=== PATIENT | male | born 1985 | race Caucasian/White ===

== ENCOUNTER 2019-03-07 14:15 | Emergency (ER) | payer BC, OTHER ==
[2019-03-07 14:32] VITALS: RESP 16; TEMP 98.3
[2019-03-07] MEDS ORDERED: SODIUM CHLORIDE 0.9% 1,000 ML IV STA (15:03)
--- NOTE | 2019-03-07 15:09 | ED ---
General Adult HPI - General Chief complaint: Extremity Injury, Upper Stated complaint: left arm pain Time Seen by Provider: 03/07/19 14:42 Source: patient Mode of arrival: ambulatory Limitations: no limitations - History of Present Illness Initial comments: Patient is a 33-year-old male presenting to emergency Department with complaints of pain in his left arm as well as chest pressure and anxiety x 2 days. Patient has history of anxiety and is currently on BuSpar for this. Patient states his left arm pain started 2 days ago. He denies any trauma or falls arm. Patient has no previous history of injuries to the left arm. Patient describes the pain as consistent, traveling down the entire arm with some mild numbness to arm. Patient's is here with him and is having to speak for him as she states he has a hard time talking when he is having a panic attack. Patient admits to sometimes not taking both doses of his BuSpar as he feels it does not work very well. Patient denies shortness of breath, cough, abdominal pain, vomiting. Pat ient does admit to some associated nausea with his anxiety. Patient denies history of heart disease. No other complaints at this time. - Related Data Home Medications Medication Instructions Recorded Confirmed Albuterol Inhaler [Ventolin Hfa 1 - 2 puff INHALATION RT-Q6H PRN 02/04/16 04/08/16 Inhaler] busPIRone HCL [Buspar] 7.5 mg PO BID 02/04/16 04/08/16 Previous Rx's Medication Instructions Recorded Hydrocodone/Acetaminophen [[place] 1 each PO Q6HR PRN #20 tab 04/09/16 5-325] Allergies Allergy/AdvReac Type Severity Reaction Status Date / Time Penicillins Allergy Rash/Hives Verified 03/07/19 14:32 Review of Systems ROS Statement: Those systems with pertinent positive or pertinent negative responses have been documented in the HPI. ROS Other: All systems not noted in ROS Statement are negative. Past Medical History Past Medical History: Asthma, GERD/Reflux, Thyroid Disorder Additional Past Medical History / Comment(s): hx migraines, heartburn, elevated bilirubin History of Any Multi-Drug Resistant Organisms: None Reported Past Surgical History: Appendectomy, Cholecystectomy Past Anesthesia/Blood Transfusion Reactions: No Reported Reaction Past Psychological History: Anxiety Smoking Status: Former smoker Past Alcohol Use History: Occasional Past Drug Use History: None Reported - Past Family History Mother Family Medical History: No Reported History General Exam - General Exam Comments Initial Comments: GENERAL: Well-appearing, well-nourished and in no acute distress. Patient appears anxious. HEAD: Atraumatic, normocephalic. EYES: Pupils equal round and reactive to light, extraocular movements intact, sclera anicteric, conjunctiva are normal. ENT: TMs normal, nares patent, oropharynx clear without exudates. Moist mucous membranes. NECK: Normal range of motion, supple without lymphadenopathy or JVD. LUNGS: Breath sounds clear to auscultation bilaterally and equal. No wheezes rales or rhonchi. HEART: Regular rate and rhythm without murmurs, rubs or gallops. ABDOMEN: Soft, nontender, normoactive bowel sounds. No guarding, no rebound. No masses appreciated. : Deferred EXTREMITIES: Normal range of motion, no pitting or edema. No clubbing or cyanosis. Patient has normal range of motion of the left shoulder. No point tenderness. Strength is 5 out of 5. NEUROLOGICAL: Cranial nerves II through XII grossly intact. Normal speech, normal gait. PSYCH: Normal mood, normal affect. SKIN: Warm, Dry, normal turgor, no rashes or lesions noted. Limitations: no limitations Course Vital Signs 03/07/19 03/07/19 14:29 16:59 Temperature 98.3 F Pulse Rate 81 80 Respiratory 16 16 Rate Blood Pressure 158/94 123/82 O2 Sat by Pulse 99 98 Oximetry EKG Findings - EKG Comments: EKG Findings:: Ventricular rate 75, KS interval 162, QTC 422. Normal sinus rhythm. No ST segment changes. Medical Decision Making - Medical Decision Making Patient is a 33-year-old male presenting with left arm pain and chest pressure times to 3 days. Patient has history of anxiety. Upon arrival, vital signs are stable, afebrile. CBC, CMP, UA are within normal limits. Troponin is normal. Urine drug screen is normal. EKG is within normal limits. Patient was given some fluids. Upon discussing results with patient, he seems to be more relaxed and states he is feeling improvement. It was discussed that he needs to follow up with his PCP regarding his increased and anxiety and making sure he takes m edications. Patient is stable for discharge and he is in agreement this plan. Return parameters were discussed with the patient and he verbalized understanding. Case discussed with Dr. Saeed. - Lab Data Result diagrams: 03/07/19 15:16 03/07/19 15:16 Lab Results 03/07/19 03/07/19 03/07/19 Range/Units 15:16 15:16 15:16 WBC 5.0 (3.8-10.6) k/uL RBC 5.52 (4.30-5.90) m/uL Hgb 17.6 H (13.0-17.5) gm/dL Hct 48.5 (39.0-53.0) % MCV 87.8 (80.0-100.0) fL MCH 31.9 (25.0-35.0) pg MCHC 36.3 (31.0-37.0) g/dL RDW 12.2 (11.5-15.5) % Plt Count 218 (150-450) k/uL Neutrophils % 61 % Lymphocytes % 28 % Monocytes % 6 % Eosinophils % 3 % Basophils % 0 % Neutrophils # 3.0 (1.3-7.7) k/uL Lymphocytes # 1.4 (1.0-4.8) k/uL Monocytes # 0.3 (0-1.0) k/uL Eosinophils # 0.2 (0-0.7) k/uL Basophils # 0.0 (0-0.2) k/uL Sodium 143 (137-145) mmol/L Potassium 4.5 (3.5-5.1) mmol/L Chloride 109 H (98-107) mmol/L Carbon Dioxide 24 (22-30) mmol/L Anion Gap 10 mmol/L BUN 13 (9-20) mg/dL Creatinine 0.86 (0.66-1.25) mg/dL Est GFR (CKD-EPI)AfAm >90 (>60 ml/min/1.73 sqM) Est GFR (CKD-EPI)NonAf >90 (>60 ml/min/1.73 sqM) Glucose 87 (74-99) mg/dL Calcium 9.6 (8.4-10.2) mg/dL Total Bilirubin 2.3 H (0.2-1.3) mg/dL AST 53 (17-59) U/L ALT 65 (21-72) U/L Alkaline Phosphatase 70 (38-126) U/L Troponin I <0.012 (0.000-0.034) ng/mL Total Protein 8.7 H (6.3-8.2) g/dL Albumin 4.9 (3.5-5.0) g/dL Urine Color Urine Appearance (Clear) Urine pH (5.0-8.0) Ur Specific [place] (1.001-1.035) Urine Protein (Negative) Urine Glucose (UA) (Negative) Urine Ketones (Negative) Urine Blood (Negative) Urine Nitrite (Negative) Urine Bilirubin (Negative) Urine Urobilinogen (<2.0) mg/dL Ur Leukocyte Esterase (Negative) Urine Opiates Screen (NotDetected) Ur Oxycodone Screen (NotDetected) Urine Methadone Screen (NotDetected) Ur Propoxyphene Screen (NotDetected) Ur Barbiturates Screen (NotDetected) U Tricyclic Antidepress (NotDetected) Ur Phencyclidine Scrn (NotDetected) Ur Amphetamines Screen (NotDetected) U Methamphetamines Scrn (NotDetected) U Benzodiazepines Scrn (NotDetected) Urine Cocaine Screen (NotDetected) U Marijuana (THC) Screen (NotDetected) 03/07/19 Range/Units 16:00 WBC (3.8-10.6) k/uL RBC (4.30-5.90) m/uL Hgb (13.0-17.5) gm/dL Hct (39.0-53.0) % MCV (80.0-100.0) fL MCH (25.0-35.0) pg MCHC (31.0-37.0) g/dL RDW (11.5-15.5) % Plt Count (150-450) k/uL Neutrophils % % Lymphocytes % % Monocytes % % Eosinophils % % Basophils % % Neutrophils # (1.3-7.7) k/uL Lymphocytes # (1.0-4.8) k/uL Monocytes # (0-1.0) k/uL Eosinophils # (0-0.7) k/uL Basophils # (0-0.2) k/uL Sodium (137-145) mmol/L Potassium (3.5-5.1) mmol/L Chloride (98-107) mmol/L Carbon Dioxide (22-30) mmol/L Anion Gap mmol/L BUN (9-20) mg/dL Creatinine (0.66-1.25) mg/dL Est GFR (CKD-EPI)AfAm (>60 ml/min/1.73 sqM) Est GFR (CKD-EPI)NonAf (>60 ml/min/1.73 sqM) Glucose (74-99) mg/dL Calcium (8.4-10.2) mg/dL Total Bilirubin (0.2-1.3) mg/dL AST (17-59) U/L ALT (21-72) U/L Alkaline Phosphatase (38-126) U/L Troponin I (0.000-0.034) ng/mL Total Protein (6.3-8.2) g/dL Albumin (3.5-5.0) g/dL Urine Color Yellow Urine Appearance Clear (Clear) Urine pH 6.0 (5.0-8.0) Ur Specific [place] 1.030 (1.001-1.035) Urine Protein Trace H (Negative) Urine Glucose (UA) Negative (Negative) Urine Ketones Trace H (Negative) Urine Blood Negative (Negative) Urine Nitrite Negative (Negative) Urine Bilirubin Negative (Negative) Urine Urobilinogen 3.0 (<2.0) mg/dL Ur Leukocyte Esterase Negative (Negative) Urine Opiates Screen Not Detected (NotDetected) Ur Oxycodone Screen Not Detected (NotDetected) Urine Methadone Screen Not Detected (NotDetected) Ur Propoxyphene Screen Not Detected (NotDetected) Ur Barbiturates Screen Not Detected (NotDetected) U Tricyclic Antidepress Not Detected (NotDetected) Ur Phencyclidine Scrn Not Detected (NotDetected) Ur Amphetamines Screen Not Detected (NotDetected) U Methamphetamines Scrn Not Detected (NotDetected) U Benzodiazepines Scrn Not Detected (NotDetected) Urine Cocaine Screen Not Detected (NotDetected) U Marijuana (THC) Screen Not Detected (NotDetected) Disposition Clinical Impression: Anxiety, Left arm pain Disposition: HOME SELF-CARE Condition: Stable Instructions (If sedation given, give patient instructions): Anxiety (ED) Additional Instructions: Please return to the Emergency Department if symptoms worsen or any other julissa rns. I'll elope with PCP as discussed, next week. Is patient prescribed a controlled substance at d/c from ED?: No Referrals: Kianna Burger MD [Primary Care Provider] - 1-2 days
[2019-03-07 15:47] LABS: Basophils % (A) 0 %; Eosinophils # (A) 0.2 k/uL (0-0.7); Eosinophils % (A) 3 %; HCT 48.5 % (39.0-53.0); HGB 17.6 gm/dL (13.0-17.5); Lymphocytes # (A) 1.4 k/uL (1.0-4.8); Lymphocytes % (A) 28 %; MCH 31.9 pg (25.0-35.0); MCHC 36.3 g/dL (31.0-37.0); MCV 87.8 fL (80.0-100.0); Mean Platelet Volume 7.4; Monocytes # (A) 0.3 k/uL (0-1.0); Monocytes % (A) 6 %; Neutrophils % (A) 61 %; Platelet Count 218 k/uL (150-450); RBC 5.52 m/uL (4.30-5.90); RDW 12.2 % (11.5-15.5)
[2019-03-07 15:59] LABS: ALT 65 U/L (21-72); AST 53 U/L (17-59); African American GFR (CKD) >90 (>60 ml/min/1.73 sqM); Albumin 4.9 g/dL (3.5-5.0); Alkaline Phosphatase 70 U/L (38-126); Anion Gap 10 mmol/L; Blood Urea Nitrogen 13 mg/dL (9-20); Calcium 9.6 mg/dL (8.4-10.2); Carbon Dioxide 24 mmol/L (22-30); Chloride 109 mmol/L (98-107); Glucose 87 mg/dL (74-99); Potassium 4.5 mmol/L (3.5-5.1); Sodium 143 mmol/L (137-145); Total Bilirubin 2.3 mg/dL (0.2-1.3); Total Protein 8.7 g/dL (6.3-8.2)
[2019-03-07 16:08] LABS: Appearance,Urine Clear (Clear); Bilirubin,Urine Negative (Negative); Blood,Urine Negative (Negative); Color,Urine Yellow; Glucose,Urine (UA) Negative (Negative); Ketones,Urine Trace (Negative); Leukocyte Esterase,Urine Negative (Negative); Nitrite,Urine Negative (Negative); Protein,Urine Trace (Negative)
[2019-03-07 16:17] LABS: Amphetamine Screen,Urine Not Detected (NotDetected); Barbiturate Screen,Urine Not Detected (NotDetected); Benzodiazepines Screen,Urine Not Detected (NotDetected); Cocaine Screen,Urine Not Detected (NotDetected); Methadone Screen, Urine Not Detected (NotDetected); Opiate Screen,Urine Not Detected (NotDetected); Oxycodone Screen, Urine Not Detected (NotDetected); Phencyclidine Screen,Urine Not Detected (NotDetected); Tricyclic Antidepressant,Urine Not Detected (NotDetected); Urn Cannabinoid Scrn Not Detected (NotDetected)
[2019-03-07 17:00] VITALS: BP 123/82; PULSE 80
== END 2019-03-07 17:03 | disposition home or self-care (01) ==
LOC: EC 14:15
DX: F41.9 Anxiety disorder, unspecified (principal); M79.602 Pain in left arm; J45.909 Unspecified asthma, uncomplicated; Z79.899 Other long term (current) drug therapy; Z88.0 Allergy status to penicillin; Z87.891 Personal history of nicotine dependence
CPT/HCPCS: 36415; 80053; 80306; 81003; 84484; 85025; 93005; 96360; 99283

== ENCOUNTER → 2020-01-29 | Outpatient (CLI) | payer BC ==
--- NOTE | 2020-01-30 07:27 | US ---
EXAMINATION TYPE: US thyroid st tissue head/neck DATE OF EXAM: 01/29/2020 COMPARISON: NONE CLINICAL HISTORY: 34-year-old male E03.9 Hypothyroidism. Abnormal labs TECHNIQUE: Multiple sonographic images of the thyroid gland are obtained. FINDINGS: GLAND SIZE: Right Lobe: 4.4 x 2.0 x 2.2 cm Overall Parenchyma: Mildly heterogenous Left Lobe: 5.6 x 1.3 x 1.5 cm Overall Parenchyma: Mildly heterogeneous Isthmus Thickness: 0.3 cm Mild diffuse hyperemia is noted. NODULES RIGHT: # of nodules measured on right: 0 LEFT: # of nodules measured on left: 0 ISTHMUS: # of nodules measured in the isthmus: 0 Bilateral neck scanned, no evidence of lymphadenopathy. IMPRESSION: Borderline to mild thyromegaly. There is slight glandular heterogeneity and mild hyperemia. Consider possible diffuse thyroiditis.
--- NOTE | 2020-01-30 07:30 | US ---
EXAMINATION TYPE: US abdomen complete DATE OF EXAM: 01/29/2020 COMPARISON: NONE CLINICAL HISTORY: 34-year-old male Abn liver enzymes R74.8. Abnormal labs, discomfort in RUQ for 1 mo nth. Patient is status post cholecystectomy. TECHNIQUE: Multiple sonographic images of the abdomen are obtained. FINDINGS: EXAM MEASUREMENTS: Liver Length: 13.3 cm Gallbladder: Surgically absent CBD: 0.6 cm Spleen: 11.4 cm Right Kidney: 10.1 x 4.6 x 5.0 cm Left Kidney: 11.1 x 4.9 x 5.9 cm Pancreas: Suboptimal visualization of the pancreatic tail due to shadowing from bowel gas. Liver: Mildly echogenic. No focal lesion. Gallbladder: Surgically absent Evidence for sonographic Hoyt's sign: no CBD: wnl Spleen: wnl Right Kidney: wnl Left Kidney: wnl Upper IVC: wnl Abd Aorta: unable to view proximal portion due to bowel gas. Visualized portion measures up to 2.4 c m, within normal limits. IMPRESSION: There may be mild fatty infiltration of liver. Borderline bile duct caliber at 6 mm acceptable given postcholecystectomy status.
== END | disposition home or self-care (01) ==
LOC: RADUSWWP 15:59
PROVIDERS: ATTEND Family Medicine
DX: E01.0 Iodine-deficiency related diffuse (endemic) goiter (principal); R68.89 Other general symptoms and signs; R74.8 Abnormal levels of other serum enzymes; Z90.49 Acquired absence of other specified parts of digestive tract
CPT/HCPCS: 76536; 76700

== ENCOUNTER → 2020-02-22 | Outpatient (CLI) | payer BC ==
--- NOTE | 2020-02-24 07:39 | CT ---
EXAMINATION TYPE: CT abdomen w con DATE OF EXAM: 02/22/2020 COMPARISON: 04/08/2016 INDICATION: RUQ pain, increased LFTs DLP: 497.2 mGycm, Automated exposure control for dose reduction was used. CONTRAST: 100 mL of Isovue 300. Study performed with Oral Contrast TECHNIQUE: Axial images were obtained from above the diaphragm to the iliac crests in the axial plane at 5 mm thick sections. Reconstructed images are reviewed on the computer in the coronal plane. FINDINGS: Limited CT sections are obtained the lung bases. The lung bases are clear. CT ABDOMEN: Liver: No discrete masses or cysts are evident. Spleen: Normal Pancreas: Normal Adrenal glands: The adrenal glands are normal. Gallbladder: Not identified. Correlate with patient's surgical history. By recent ultrasound this is surgically absent. Kidneys: No masses are evident. No hydronephrosis is present. No cysts are present. Delayed images were obtained through the kidneys, which remain unremarkable. Aorta: Normal Inferior vena cava: Normal. Bowel: Loops of bowel distended with oral contrast. Unremarkable. Fecal debris is within the colon. O ral contrast extends all bowel loops within the [id number]. IMPRESSIONS: 1. Liver is visualized appears unremarkable.
== END | disposition home or self-care (01) ==
LOC: RADCTMAIN 13:36
PROVIDERS: ATTEND Family Medicine
DX: R74.8 Abnormal levels of other serum enzymes (principal); R17 Unspecified jaundice; Z90.49 Acquired absence of other specified parts of digestive tract
CPT/HCPCS: 74160; Q9967

== ENCOUNTER → 2020-03-24 | Outpatient (CLI) | payer BC ==
[2020-03-25 01:00] LABS: INR <0.90 (0.90-1.11); Prothrombin Time <9.9 sec (9.9-11.9)
[2020-03-25 01:17] LABS: African American GFR (CKD) 113.3 (60.0-200.0); Albumin 4.8 g/dL (3.80-4.90); Albumin/Globulin Ratio 1.78 (1.60-3.17); Calcium 9.4 mg/dL (8.7-10.3); Globulin 2.7 g/dL (1.6-3.3); Non-African American GFR(CKD) 97.8 (60.0-200.0); Potassium 4.3 mmol/L (3.5-5.5); Total Bilirubin 1.5 mg/dL (0.3-1.2); Total Protein 7.5 g/dL (6.2-8.2)
== END | disposition home or self-care (01) ==
LOC: LABWHC1 14:57
PROVIDERS: ATTEND Nurse Practitioner
DX: R74.8 Abnormal levels of other serum enzymes (principal)
CPT/HCPCS: 36415; 80053; 85610

== ENCOUNTER → 2020-05-14 | Outpatient (CLI) | payer BC ==
--- NOTE | 2020-05-15 19:50 | MR ---
EXAMINATION TYPE: MR abdomen wo/w con DATE OF EXAM: 05/14/2020 COMPARISON: CT abdomen 02/22/2020. Abdominal ultrasound 01/29/2020. HISTORY: Rt Upper Quad Pain, elevated liver enzymes TECHNIQUE: Multiplanar, multisequence images of the abdomen were obtained without and with 9 mL of IV Gadavist contrast. FINDINGS: Lung bases: No pleural or pericardial effusion. Liver: Tiny T2 hyperintense hepatic cyst of the right lobe. There is mild signal loss on out of phase imaging of the liver consistent with mild steatosis. Biliary: No biliary ductal dilatation. Status post cholecystectomy. Pancreas: Normal. Spleen: Not enlarged. Adrenals: Normal. Kidneys: No hydronephrosis. Subcentimeter simple left renal cyst of the lower pole. Bowel: No bowel obstruction. Lymph nodes: No lymphadenopathy. Peritoneum: No ascites. Vasculature: No abdominal aortic aneurysm. Osseous structures: No marrow-replacing lesions seen. Vertebral body hemangioma of T12. IMPRESSION: Mild hepatic steatosis.
== END | disposition home or self-care (01) ==
LOC: RADMRIMAIN 15:48
PROVIDERS: ATTEND Nurse Practitioner
DX: K76.0 Fatty (change of) liver, not elsewhere classified (principal)
CPT/HCPCS: 74183; A9585

== ENCOUNTER → 2020-06-03 | Outpatient (CLI) | payer BC ==
[2020-06-04 03:47] LABS: Albumin 4.5 g/dL (3.80-4.90); Albumin/Globulin Ratio 1.8 (1.60-3.17); Bilirubin, Conjugated 0.5 mg/dL (0.20-0.40); Bilirubin,Unconjugated 1.2 mg/dL; Globulin 2.5 g/dL (1.6-3.3); Total Bilirubin 1.7 mg/dL (0.2-1.2)
== END | disposition home or self-care (01) ==
LOC: LABWHC1 14:49
PROVIDERS: ATTEND Nurse Practitioner
DX: R74.8 Abnormal levels of other serum enzymes (principal)
CPT/HCPCS: 36415; 80076

== ENCOUNTER → 2020-06-12 | Outpatient (CLI) | payer BC ==
[2020-06-12 20:36] LABS: % Iron Saturation 26.61 (15.00-50.00); Albumin 4.5 g/dL (3.80-4.90); Albumin/Globulin Ratio 1.8 (1.60-3.17); Bilirubin, Conjugated 0.5 mg/dL (0.20-0.40); Bilirubin,Unconjugated 1.3 mg/dL; Globulin 2.5 g/dL (1.6-3.3); Total Bilirubin 1.8 mg/dL (0.2-1.2)
[2020-06-12 20:44] LABS: Ferritin 76.2 ng/mL (22.0-322.0)
== END | disposition home or self-care (01) ==
LOC: LABWHC1 10:24
PROVIDERS: ATTEND Nurse Practitioner
DX: R74.8 Abnormal levels of other serum enzymes (principal)
CPT/HCPCS: 36415; 80076; 82728; 83540; 83550; 84165

== ENCOUNTER → 2022-03-10 | Outpatient (CLI) | payer BC ==
--- NOTE | 2022-03-11 07:57 | CT ---
EXAMINATION TYPE: CT abdomen w con CT DLP: 603.0 mGycm, Automated exposure control for dose reduction was used. DATE OF EXAM: 03/10/2022 6:58 PM COMPARISON: CT abdomen pelvis most recent from 02/22/2020 CLINICAL INDICATION:Male, 36 years old with history of R10.12 Left upper quadrant pain; Lt upper quad rant pain TECHNIQUE: Axial CT of the abdomen and pelvis. Sagittal and coronal reformats were created on a [employer] workstation. Contrast used:100 mL of Isovue 300 with IV Contrast, Oral contrast used: with Oral Contrast FINDINGS: LOWER CHEST: Left lower lobe 3 mm pulmonary nodule. ABDOMEN LIVER: Diffusely hypoattenuating parenchyma. GALLBLADDER AND BILE DUCTS: The gallbladder is surgically absent. PANCREAS: Unremarkable. SPLEEN: Unremarkable. ADRENAL GLANDS: Unremarkable. KIDNEYS AND URETERS: No evidence of hydronephrosis or renal calculus. The ureters are unremarkable. PELVIS BLADDER: Unremarkable REPRODUCTIVE: Unremarkable. ABDOMEN & PELVIS STOMACH AND BOWEL: There is a large stool burden throughout the colon. No evidence of bowel obstructi on. PERITONEUM: No evidence of pneumoperitoneum or free fluid. VASCULATURE: No evidence of aortic aneurysm. There are 2 right renal arteries. MUSCULOSKELETAL: No acute osseous abnormalities, minimal multilevel disc degeneration changes and fac et arthropathy. There is straightening of the spine. LYMPH NODES: No gross evidence for lymphadenopathy. SOFT TISSUE/ABDOMINAL WALL: Fat-containing ventral wall hernia measuring 4 mm at the neck. Umbilical hernia measuring 12 mm at the neck. IMPRESSION: 1. No acute process to explain the patient's pain 2. Hepatic steatosis. 3. Large stool burden throughout the colon. 4. Small Umbilical and ventral wall hernias containing fat. 5. Left lower lobe 3 mm pulmonary nodule, unchanged from 2020 likely benign.
== END | disposition home or self-care (01) ==
LOC: RADCTMAIN 17:51
PROVIDERS: ATTEND Family Medicine
DX: K76.0 Fatty (change of) liver, not elsewhere classified (principal); K42.9 Umbilical hernia without obstruction or gangrene; R10.12 Left upper quadrant pain; R91.1 Solitary pulmonary nodule
CPT/HCPCS: 74160; Q9967 ×2